=== PATIENT | female | born 1975 | race Caucasian/White ===

== ENCOUNTER → 2023-02-21 09:34 | Outpatient (BNVA) | payer BC, MEDICAID, SELFPAY | PROVIDERS: Visit Provider Podiatrist Foot & Ankle Surgery | DX: M79.673 Pain in unspecified foot (principal) | CPT/HCPCS: 87070; 87075; 87077; 87186; 87205 ==

== ENCOUNTER 2023-06-06 12:19 | Outpatient (CLI) | payer BC, MEDICAID, SELFPAY ==
--- NOTE | 2023-06-06 12:30 | CT_ITS ---
WS: [id number] CT ANGIOGRAPHY OF THE ABDOMINAL AORTA WITH RUNOFF TO THE ANKLES HISTORY: Gangrene, LEFT foot TECHNIQUE: Arterial injection is performed during imaging to evaluate the aorta and runoff vessels to the ankles. MIP and volume rendering imaging has also been performed. All images are reviewed. All C T scans at [facility] use at least one of these dose optimization techniques: automated exposu re control; mA and/or kV adjustment per patient size (includes targeted exams where dose is matched t o clinical indication); or iterative reconstruction. Contrast: Omnipaque 350; 100 mL IV. DLP: 1708.44 mg COMPARISON: None available. Dependent changes at the lung bases along with breathing motion artifact. Normal size heart. Abdominal aorta: Mild atherosclerotic changes within the abdominal aorta. No aneurysm. There is small amount of calcified plaque and intimal thickening. Proximal celiac axis and SMA appear intact. Paten t bilateral renal arteries. ANDRE is still patent. RIGHT lower extremity arterial evaluation: Common, internal and external iliac arteries are both mendoza nt. Femoral, SFA and deep profundus are intact. Increasing calcification in the mid to distal SFA. Po pliteal artery is intact. Small vessel runoff to the ankle but all 3 vessels do appear to be patent. There is scattered plaque in the mid to distal SFA. No occlusion. LEFT lower extremity arterial evaluation: Common, internal and external iliac arteries are patent. Th ere is scattered calcified plaque. Small caliber proximal internal iliac artery. No high-grade occlus ion. Femoral artery, SFA and deep profundus are intact. Small caliber SFA. Small collateral vessels i n the mid SFA but no high-grade occlusion identified. Popliteal artery is patent. Peroneal artery may be occluded. Beyond the mid tibia there is poor visualization of the peroneal. No visceral organ abnormalities are identified. No renal obstruction. Kidneys are enhancing normally. No mass or ascites. No GI tract obstruction. Mild diverticular disease. Negative urinary bladder. Mild anterior wedging of L1 by 10%. IMPRESSION: 1. Mild diffuse peripheral arterial disease throughout the lower extremities beginning at the level o f the mid superficial femoral arteries. 2. Poor visualization of the mid to distal LEFT peroneal artery. There is limited arterial flow throu gh the LEFT peroneal artery to the ankle. 3. Mild atherosclerotic plaque in the mid to distal superficial femoral arteries bilaterally and thro ugh the iliac arteries. 4. No aortic aneurysm. 5. Normal enhancement of the kidneys.
== END 2023-06-06 12:20 | disposition home or self-care (01) ==
LOC: RAD 12:20
PROVIDERS: PCP Nurse Practitioner Family; Visit Provider Podiatrist Foot & Ankle Surgery
DX: I70.263 Atherosclerosis of native arteries of extremities with gangrene, bilateral legs (principal)
CPT/HCPCS: 75635; Q9967

== ENCOUNTER 2023-10-13 12:20 | Outpatient (CLI) | payer BC, MEDICAID, SELFPAY ==
--- NOTE | 2023-10-13 12:24 | US_ITS ---
WS: [id number] US pelvic complete* [id number] HISTORY: ABNORMAL FINDINGS ON DIAGNOSTIC IMAGING COMPARISON: None available. Uterus: 10.0 cm x 6.6 cm x 4.2 cm. Normal size anteverted uterus. No fibroid or mass. Endometrium: 0.6 cm. Normal. Right ovary: 1.9 cm x 2.3 cm x 1.5 cm. Normal size and vascularity, no cystic or solid masses. Left ovary: Not identified. No free fluid. IMPRESSION: 1. Normal anteverted uterus. No fibroid. 2. Normal endometrium. 3. Nonvisualization LEFT ovary.
== END 2023-10-13 12:21 | disposition home or self-care (01) ==
LOC: RAD 12:20
PROVIDERS: PCP Nurse Practitioner Family; Visit Provider Nurse Practitioner Family
DX: R93.5 Abnormal findings on diagnostic imaging of other abdominal regions, including retroperitoneum (principal); N85.4 Malposition of uterus
CPT/HCPCS: 76856

== ENCOUNTER 2024-01-03 08:48 | Day surgery (SDC) | payer BC, MEDICAID, SELFPAY ==
--- NOTE | 2023-12-20 08:16 | SUR.PREOP ---
0815 Call placed to pts and stated that they would have to reschedule, pts states that he is her primary caregiver and has been up til 2am and its a [address] and is unable to make it today,OR charge nurse Xiang with admissions notified
[2024-01-03] VITALS (10 sets, daily range): BP systolic 93–110; BP diastolic 56–73; PULSE 58–93; RESP 12–18; TEMP 36.3–36.8; O2SAT 93–97; BMI 50.8
--- NOTE | 2024-01-03 09:26 | P.HPUD_ITS ---
Surgery/Procedure H&P Update DATE OF PROCEDURE: January 03, 2024 DATE H&P PERFORMED: 12/07/23 H&P UPDATE INFORMATION: I have reviewed H&P completed within last 30 days, I have examined patient prior to procedure, No changes to prior documentation and H&P is in [facility] EMR on date indicated PREOP DIAGNOSIS: Gangrene left hallux PLANNED PROCEDURE: Operation Date: 01/03/24 10:55 Proposed Procedures p Amputation Toe/s Hallux Amputation/ Partial left hallux amputation at interphalangeal joint Versus amputation at the metatarsophalangeal joint(Left) - Matthieu Coello DPM
[2024-01-03] MEDS: sodium chloride 0.9% 1,000 ML 30 ML IV (09:45)
[2024-01-03] MEDS: acetaminophen 1,000 MG/100 ML PIGGYBACK 400 MG IV (09:45)
[2024-01-03] MEDS: gabapentin 300 mg Capsule PO (09:46)
--- NOTE | 2024-01-03 09:51 | ANES.PREANE2 ---
Pre-Anesthetic Assessment Height/Weight: Height 1.52 m Weight 117.934 kg Temp Pulse Resp BP Pulse Ox O2 Del Method 98.3 F 93 18 98/71 93 Room Air 01/03/24 09:13 01/03/24 09:13 01/03/24 09:13 01/03/24 09:13 01/03/24 09:13 01/03/24 09:33 Preop Diagnosis: Gangrene left hallux Operation Date: 01/03/24 10:55 Proposed Procedures p Amputation Toe/s Hallux Amputation/ Partial left hallux amputation at interphalangeal joint Versus amputation at the metatarsophalangeal joint(Left) - Matthieu Coello DPM Familial anesthetic complications: None Was Beta Joon taken within 24 hours: N/A Was Clonidine taken within 24 hours: N/A Last intake: Intake Last Liquid Date 01/02/24 Last Liquid Time 23:00 Last Solid Date 01/02/24 Last Solid Time 20:30 Social No alcohol and No tobacco Exam alert, oriented x 3, clear to auscultation bilaterally and regular rate & rhythm Airway Mallampati: Class III Dentition: chipped and other (poor denttion) Pulmonary PE CV/HEM Hypertension Metabolic Morbid Obesity Neuropsych Cerebrovascular Accident Anesthetic Plan ASA status: 3 Anesthesia: MAC Risk of > 500 ml blood loss (7ml/kg in children): No Medications/Allergies Home Medications Medication Instructions Recorded Confirmed Last Taken Type amlodipine 10 mg tablet 10 mg PO DAILY 02/21/23 01/02/24 01/02/24 History apixaban 5 mg tablet (Eliquis) 5 mg PO BID 02/21/23 01/02/24 01/02/24 History atorvastatin 40 mg tablet 40 mg PO DAILY 02/21/23 01/02/24 01/02/24 History famotidine 20 mg chewable tablet 20 mg PO DAILY 02/21/23 01/02/24 01/02/24 History fluoxetine 20 mg capsule 60 mg PO DAILY 02/21/23 01/02/24 01/02/24 History hyoscyamine sulfate 0.125 mg tablet 0.125 mg PO QID 02/21/23 01/02/24 01/02/24 History lisinopril 10 mg tablet 10 mg PO DAILY 02/21/23 01/02/24 01/02/24 History quetiapine 25 mg tablet (Seroquel) 25 mg PO DAILY 02/21/23 01/02/24 01/02/24 History solifenacin 5 mg tablet (Vesicare) 5 mg PO DAILY 02/21/23 01/02/24 01/02/24 History terazosin 1 mg capsule 1 mg PO DAILY 02/21/23 01/02/24 01/02/24 History gabapentin 300 mg capsule 600 mg PO BID 06/06/23 01/02/24 01/02/24 History levetiracetam 1,000 mg tablet 1,000 mg PO BID 06/06/23 01/02/24 01/02/24 History (Keppra) magnesium oxide 400 mg (241.3 mg 400 mg PO DAILY 12/19/23 01/02/24 01/02/24 History magnesium) tablet diazepam 5 mg tablet 5 mg PO DAILY 01/02/24 01/02/24 01/02/24 History trazodone 50 mg tablet 50 mg PO DAILY 01/02/24 01/02/24 01/02/24 History Allergies Allergy/AdvReac Type Severity Reaction Status Date / Time latex Allergy Mild ALGY-Redness Verified 12/19/23 12:13 of Skin adhesive tape Allergy ALGY-Rash Verified 01/02/24 13:44 amoxicillin Allergy itch Verified 12/19/23 12:13 Current Medications Generic Name Dose Route Start Last Admin Trade Name Freq PRN Reason Stop Dose Admin Sodium Chloride 1,000 mls @ 30 mls/hr 01/03/24 09:00 01/03/24 09:45 Sodium Chloride 0.9% IV 01/04/24 08:59 30 mls/hr .Q24H CORA Administration PFSH Anesthesia Social History Smoking and tobacco/nicotine status: former use of tobacco/nicotine Quit status (tobacco/nicotine): has quit using Year quit tobacco: 2021 Former quit date comment: 1 pack per day x 25 years Alcohol intake: former Substance/Drug Use: current Substance/Drug use frequency: daily Household members: spouse Marital status: Pets and animals: Yes Pets & animals: cat(s) and dog(s) Data Anesthesia Cardiac Studies: No Data to Display
[2024-01-03] MEDS: vancomycin 1,000 MG in sodium chloride 0.9% 250 ML 250 MG IV (09:55)
[2024-01-03] MEDS: BUPivacaine 0.5% INJ 30 mL INJECTION (10:20)
--- NOTE | 2024-01-03 10:42 | P.BOP_ITS ---
Date of procedure: 01/03/2024 Surgeon name: Dr. Matthieu Coello D.P.M. Supervisor [employer](s) name(s): Mejia Procedure(s) performed: Partial amputation left hallux Description of findings: Gangrene left hallux Estimated blood loss: 2 cc Tourniquet time: 13 minutes Specimen(s) removed: Left hallux Post-operative diagnosis: Gangrene left hallux
--- NOTE | 2024-01-03 10:42 | P.OP_ITS ---
Operative Report Date of procedure: January 03, 2024 Pre-op diagnosis: Gangrene left hallux Post-op diagnosis: Same Post-op findings: Gangrene left hallux Procedure done: Partial amputation left hallux CPT 01100 Implants: None Specimens removed/disposition: Distal half left hallux send as surgical specimen Surgeon: Matthieu Coello DPM Verification Clerk: Mejia Estimated blood loss: 2 cc 13 minutes Complications: None Findings: See above Procedure: Patient is a 48-year-old female that has a history of left hallux gangrene. The patient has had the aforementioned chief complaint for some time. Conservative treatment measures have been attempted and the patient has opted for surgical intervention at this time. A lengthy discussion regarding the procedure, including risks and complications has been had with the patient and is noted in the recent clinic note. Written and verbal consent have been obtained. All patient questions have been answered to the patient?s satisfaction. No written or verbal guarantees have been given or implied. The patient has been NPO since midnight. The history has been reviewed and the history and physical is current. The signed consent was confirmed and placed in the patient chart. Patient imaging has been reviewed and is consistent with the diagnosis. Under mild sedation, the patient was brought into the operating room and left on the gurney in the supine position. IV antibiotics were given by the anesthesia team as preoperative surgical prophylaxis. General sedation was then performed by the anesthesiateam. A pneumatic tourniquet was then placed about the left ankle. The operative extremity was then prepped and draped in the usual fashion. The extremity was then elevated and exsanguinated before the tourniquet was inflated to 250 mmHg. After inflation, the following procedure was then performed. Attention was directed to the hallux of the left foot where distal gangrenous Wa s noted. #15 blade was used to make a fishmouth incision at the level of the hallux interphalangeal joint. Dissection was carried down through subcutaneous and superficial fascia to the level of the hallux interphalangeal joint. The distal hallux was disarticulated at this level and passed from the operative field to be sent as surgical specimen. The remaining tissue appeared healthy and viable. The proximal phalanx head was noted to be anatomic without any erosive changes. The tourniquet was let down and good hyperemic response was noted to the distal digits as well as to the amputation site. Hemostasis was achieved. The site was then irrigated with copious amounts of sterile saline before attention was directed to closure. The amputation site was closed with 3-0 nylon in simple interrupted fashion. The incision site was dressed with Xeroform, 4 x 4 gauze, Kerlix, Gene. The patient tolerated the procedure and anesthesia well and without complication. The patient was transported from the operating room to the recovery room with vital signs stable and vascular status intact to all digits of the left foot. The patient was given both written and verbal instructions to keep dressings/splint clean, dry and intact and to take pain medication as directed. The patient will follow-up in the outpatient setting at their scheduled appointment. The patient was discharged with my personal number and was instructed to call if any questions or issues should arise. They were discharged home once anesthesia criteria was met.
[2024-01-03] MEDS: ibuprofen 800 mg tablet PO (11:40)
--- NOTE | 2024-01-03 12:15 | ANE.PACU2 ---
Inpatient post-anesthesia follow up: Airway intact: Yes Vital signs: Temperature 97.8 F Pulse Rate 83 Respiratory Rate 16 Blood Pressure 110/73 Pulse Oximetry 93 Oxygen Delivery Me thod Room Air Oxygen Flow Rate 2 Fraction of Inspir ed Oxygen Hydration adequate: Yes Nausea and vomiting: No Pain level: 1 Mental status: Baseline
== END 2024-01-03 12:18 | disposition home or self-care (01) ==
PROVIDERS: PCP Nurse Practitioner Family; Visit Provider Podiatrist Foot & Ankle Surgery
PROC: (CPT 28825; principal; 2024-01-03 10:45)
DX: I96 Gangrene, not elsewhere classified (principal); Z86.711 Personal history of pulmonary embolism; I10 Essential (primary) hypertension; Z86.73 Personal history of transient ischemic attack (TIA), and cerebral infarction without residual deficits; Z87.891 Personal history of nicotine dependence
CPT/HCPCS: 28825; 88305; 88311; J0131; J2704; J3010; J3370; J3490; J7030; J7050

== ENCOUNTER 2024-01-15 12:39 | Outpatient (CLI) | payer BC, MEDICAID, SELFPAY ==
--- NOTE | 2024-01-15 13:08 | CT_ITS ---
WS: [id number] CT HEAD NONCONTRAST HISTORY: CEREBRAL INFARCTION DUE TO EMBOLISM OF RT MIDDLE CEREBRAL artery TECHNIQUE: Contiguous axial imaging performed through the brain in 2.0 mm imaging. Bone and soft tiss ue windows. Sagittal and coronal reformats reviewed. All CT scans at [facility] use at least one of these dose optimization techniques: automated exposure control; mA and/or kV adjustment per pa tient size (includes targeted exams where dose is matched to clinical indication); or iterative recon struction. DLP: 1024.08 mGy.cm COMPARISON: None available. No acute intracranial hemorrhage, midline shift or mass effect. 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 This fluid collection is contiguous and extends external to the graft. The fluid co llection is similar attenuation extracranial and in the MCA territory. Ventricles: Marked ex vacuo dilatation of the RIGHT lateral ventricle. No inferior displacement of the cerebellar tonsils. Paranasal sinuses: As visualized are clear. Mastoid air cells: Well pneumatized. Calvarium and scalp: Status post craniectomy with calvarial graft replacement. CT/CT head wo con* [id number] IMPRESSION: 1. No prior imaging of the intracranial structures. 2. 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 There is a large RIGHT craniectomy site. 3. Marked ex vacuo dilatation of the RIGHT lateral ventricle.
== END 2024-01-15 12:40 | disposition home or self-care (01) ==
LOC: RAD 12:39
PROVIDERS: PCP Nurse Practitioner Family; Visit Provider Nurse Practitioner Family
DX: I63.411 Cerebral infarction due to embolism of right middle cerebral artery (principal)
CPT/HCPCS: 70450